=== PATIENT | female | born 1950 | race African-American/Black ===

== ENCOUNTER 2021-03-03 14:33 | Observation (INO) ==
[2021-03-03] MEDS ORDERED: SODIUM CHLORIDE 0.9% 1,000 ML IV STA (15:01)
[2021-03-03 15:44] LABS: Basophils % 0.2 % (0.0-0.8); Eosinophils # 0.1 10*3/uL (0.0-0.87); Eosinophils % 1.2 % (0.00-10.9); Hematocrit 39.3 VOL% (35.7-47.0); Hemoglobin 12.5 GM/DL (12.0-16.0); Immature Granulocytes % 0.8 %; Immature Granulocytes Absolute 0.07 #; Lymphocytes # 2.3 10*3/uL (1.4-4.0); Mean Corpuscular HGB Conc 31.8 GM/DL (32-36); Mean Corpuscular Volume 97.5 FL (87-102); Mean Platelet Volume 10.3 FL (9.6-12.0); Monocytes % 5.5 % (1.7-12.7); Neutrophils % 65.3 % (38.7-73.9); Platelet Count 379 T/CUMM (130-400); Red Blood Count 4.03 MC/CUMM (3.8-5.5); Red Cell Distribution Width 13.5 % (9.3-17.3); White Blood Count 8.7 T/CUMM (4-12)
[2021-03-03 16:10] LABS: Alanine Aminotransferase < 9 U/L (13-56); Albumin 3.2 G/DL (3.4-5.0); Alkaline Phosphatase 117 U/L (45-117); Amylase 49 U/L (25-115); Aspartate Amino Transferase 12 U/L (0-37); Blood Urea Nitrogen 20 MG/DL (7-18); Calcium 9.3 MG/DL (8.5-10.1); Carbon Dioxide 26 MMOL/L (21-32); Estimated Glom Filtration Rate 44 ML/MIN; Glucose 190 MG/DL (74-106); Osmolality,Calculated 280.8 MOS/KG (273-304); Potassium 3.1 MMOL/L (3.5-5.1); Sodium 137 MMOL/L (136-145); Thyroid Stimulating Hormone 0.551 uIU/ml (0.358-3.74); Total Protein 7.4 G/DL (6.4-8.2)
[2021-03-03 17:08] LABS: Bacteria,Urine Occasional /HPF (Few); Bilirubin,Urine Negative (Negative); Blood, Urine Negative (Negative); Glucose,Urine (UA) >=500 mg/dL (Negative); Hyaline Casts,Urine 5 /LPF (0-3); Ketones,Urine Negative (Negative); Mucus,Urine Occasional /LPF (Occasional); Nitrite,Urine Negative (Negative); Protein,Urine Negative; RBC,Urine 3 /HPF (0-4); Squamous Epithelial Cell,Urine Occasional /HPF (0-10); Urine Appearance CLEAR (Clear); Urine Color Yellow (Yellow); Urine Specific Gravity 1.014 (1.001-1.035); Urine Urobilinogen < 2.0 EU/DL (<2.0)
[2021-03-03] MEDS ORDERED: DEXTROSE 50% 25 GM/50 ML VIAL IV PRN (17:51)
[2021-03-03] MEDS ORDERED: ONDANSETRON 4 MG/2 ML VIAL IV PRN (17:51)
[2021-03-03] MEDS ORDERED: GLUCAGON 1 MG VIAL IM PRN ×2 (17:51)
[2021-03-03] MEDS ORDERED: POTASSIUM CHLORIDE 20 MEQ TABLET PO STA (17:56)
[2021-03-03] MEDS ORDERED: DEXTROSE 50% 25 GM/50 ML SYRINGE IV PRN (18:07)
[2021-03-03] MEDS: ENOXAPARIN 40 MG/0.4 ML SYRINGE SUBCUT SCH (19:08)
[2021-03-03] MEDS: INSULIN LISPRO 100 UNIT/ML SUBCUT SCH (21:10)
[2021-03-03] MEDS: LACTATED RINGERS 1,000 ML IV SCH (21:18)
[2021-03-03] MEDS: BRIMONIDINE 0.2% OPH SOLN 5 ML BOTTLE BOTH EYES SCH (22:36)
[2021-03-03] MEDS: ATROPINE 1 % OPH SOLN 5 ML BOTTLE RIGHT EYE SCH (22:36)
[2021-03-03] MEDS: prednisoLONE ACETATE 1% OPH SUSP 5 ML BOTTLE RIGHT EYE SCH (22:36)
[2021-03-04 04:29] LABS: Basophils % 0.2 % (0.0-0.8); Eosinophils # 0.2 10*3/uL (0.0-0.87); Eosinophils % 1.9 % (0.00-10.9); Hematocrit 37.2 VOL% (35.7-47.0); Hemoglobin 11.9 GM/DL (12.0-16.0); Immature Granulocytes % 0.5 %; Immature Granulocytes Absolute 0.05 #; Lymphocytes # 2.3 10*3/uL (1.4-4.0); Lymphocytes % 23.6 % (21.3-54.2); Mean Corpuscular Volume 95.9 FL (87-102); Mean Platelet Volume 10.2 FL (9.6-12.0); Monocytes % 5.6 % (1.7-12.7); Neutrophils % 68.2 % (38.7-73.9); Platelet Count 363 T/CUMM (130-400); Red Blood Count 3.88 MC/CUMM (3.8-5.5); Red Cell Distribution Width 13.5 % (9.3-17.3); White Blood Count 9.9 T/CUMM (4-12)
[2021-03-04 04:56] LABS: Osmolality,Calculated 283.4 MOS/KG (273-304); Potassium 3.5 MMOL/L (3.5-5.1); Risk Ratio 4.59; VLDL Cholesterol 26.8 MG/DL
[2021-03-04] MEDS: LACTATED RINGERS 1,000 ML IV SCH ×3 (05:31→19:13)
[2021-03-04 05:42] LABS: Sedimentation Rate-Westergren 43 MM/HR (0-30)
[2021-03-04] MEDS: INSULIN LISPRO 100 UNIT/ML SUBCUT SCH ×4 (07:45→21:22)
[2021-03-04] MEDS ORDERED: INFLUENZA VIRUS VACCINE 0.5 ML SYRINGE IM ONE (09:00)
[2021-03-04] MEDS: PANTOPRAZOLE 40 MG TABLET PO SCH (10:34)
[2021-03-04] MEDS: ASPIRIN EC 81 MG TABLET PO SCH (10:34)
[2021-03-04] MEDS: ASCORBIC ACID 500 MG TABLET PO SCH (10:34)
[2021-03-04] MEDS: CHOLECALCIFEROL 1,000 UNIT TABLET PO SCH (10:34)
[2021-03-04] MEDS: MULTIVITAMIN (CENTRUM) TABLET PO SCH (10:35)
[2021-03-04] MEDS: BRIMONIDINE 0.2% OPH SOLN 5 ML BOTTLE BOTH EYES SCH ×2 (10:35→21:20)
[2021-03-04] MEDS: ATROPINE 1 % OPH SOLN 5 ML BOTTLE RIGHT EYE SCH ×2 (10:35→21:22)
[2021-03-04] MEDS: prednisoLONE ACETATE 1% OPH SUSP 5 ML BOTTLE RIGHT EYE SCH ×4 (10:35→21:20)
[2021-03-04] MEDS: ENOXAPARIN 40 MG/0.4 ML SYRINGE SUBCUT SCH ×2 (19:17→20:35)
[2021-03-05] MEDS: LACTATED RINGERS 1,000 ML IV SCH ×3 (01:11→18:33)
[2021-03-05] MEDS ORDERED: ACETAMINOPHEN 325 MG TABLET PO PRN (05:38)
[2021-03-05 05:50] LABS: Basophils % 0.4 % (0.0-0.8); Eosinophils # 0.3 10*3/uL (0.0-0.87); Eosinophils % 3.6 % (0.00-10.9); Hematocrit 36.5 VOL% (35.7-47.0); Hemoglobin 11.8 GM/DL (12.0-16.0); Immature Granulocytes % 0.5 %; Immature Granulocytes Absolute 0.04 #; Lymphocytes # 2.9 10*3/uL (1.4-4.0); Mean Corpuscular HGB Conc 32.3 GM/DL (32-36); Mean Corpuscular Volume 96.3 FL (87-102); Mean Platelet Volume 10.8 FL (9.6-12.0); Monocytes % 6.3 % (1.7-12.7); Neutrophils % 54.2 % (38.7-73.9); Platelet Count 387 T/CUMM (130-400); Red Blood Count 3.79 MC/CUMM (3.8-5.5); Red Cell Distribution Width 13.7 % (9.3-17.3); White Blood Count 8.2 T/CUMM (4-12)
[2021-03-05 06:06] LABS: Calcium 9.4 MG/DL (8.5-10.1); Osmolality,Calculated 278.5 MOS/KG (273-304); Potassium 3.3 MMOL/L (3.5-5.1)
[2021-03-05] MEDS ORDERED: MAGNESIUM SULF RIDER 4 GM/100 ML PREMIX IV ONE (08:19)
[2021-03-05] MEDS: INSULIN LISPRO 100 UNIT/ML SUBCUT SCH ×4 (09:40→20:34)
[2021-03-05] MEDS: ASPIRIN EC 81 MG TABLET PO SCH (09:40)
[2021-03-05] MEDS: prednisoLONE ACETATE 1% OPH SUSP 5 ML BOTTLE RIGHT EYE SCH ×4 (09:40→21:29)
[2021-03-05] MEDS: BRIMONIDINE 0.2% OPH SOLN 5 ML BOTTLE BOTH EYES SCH ×2 (09:40→21:29)
[2021-03-05] MEDS: CARBIDOPA/LEVODOPA 25-250 MG TABLET PO SCH ×2 (09:40→13:37)
[2021-03-05] MEDS: PANTOPRAZOLE 40 MG TABLET PO SCH (09:40)
[2021-03-05] MEDS: MULTIVITAMIN (CENTRUM) TABLET PO SCH (09:40)
[2021-03-05] MEDS: ATROPINE 1 % OPH SOLN 5 ML BOTTLE RIGHT EYE SCH ×2 (09:40→21:29)
[2021-03-05] MEDS: CHOLECALCIFEROL 1,000 UNIT TABLET PO SCH (09:41)
[2021-03-05] MEDS: ASCORBIC ACID 500 MG TABLET PO SCH (09:42)
[2021-03-05] MEDS ORDERED: POTASSIUM CHLORIDE 20 MEQ TABLET PO ONE (12:36)
[2021-03-05] MEDS: POTASSIUM CHLORIDE RIDER 10 MEQ/100 ML PREMIX IV SCH (12:42)
[2021-03-05] MEDS: ENOXAPARIN 40 MG/0.4 ML SYRINGE SUBCUT SCH (21:29)
[2021-03-05] MEDS: CARBIDOPA/LEVODOPA 25-100 MG TABLET PO SCH (21:30)
[2021-03-06] MEDS: LACTATED RINGERS 1,000 ML IV SCH ×4 (00:12→20:01)
[2021-03-06 04:24] LABS: Basophils % 0.2 % (0.0-0.8); Eosinophils # 0.4 10*3/uL (0.0-0.87); Eosinophils % 4.3 % (0.00-10.9); Hematocrit 32.7 VOL% (35.7-47.0); Hemoglobin 10.4 GM/DL (12.0-16.0); Immature Granulocytes % 0.4 %; Immature Granulocytes Absolute 0.03 #; Mean Corpuscular HGB Conc 31.8 GM/DL (32-36); Mean Corpuscular Volume 96.7 FL (87-102); Mean Platelet Volume 11.1 FL (9.6-12.0); Monocytes % 6.1 % (1.7-12.7); Platelet Count 354 T/CUMM (130-400); Red Blood Count 3.38 MC/CUMM (3.8-5.5); Red Cell Distribution Width 13.7 % (9.3-17.3); White Blood Count 8.5 T/CUMM (4-12)
[2021-03-06 04:46] LABS: Calcium 8.7 MG/DL (8.5-10.1); Osmolality,Calculated 281.3 MOS/KG (273-304); Potassium 4.1 MMOL/L (3.5-5.1)
[2021-03-06] MEDS: INSULIN LISPRO 100 UNIT/ML SUBCUT SCH ×4 (09:13→20:45)
[2021-03-06] MEDS: ASPIRIN EC 81 MG TABLET PO SCH (09:13)
[2021-03-06] MEDS: MULTIVITAMIN (CENTRUM) TABLET PO SCH (09:13)
[2021-03-06] MEDS: PANTOPRAZOLE 40 MG TABLET PO SCH (09:13)
[2021-03-06] MEDS: ATROPINE 1 % OPH SOLN 5 ML BOTTLE RIGHT EYE SCH ×2 (09:14→20:45)
[2021-03-06] MEDS: prednisoLONE ACETATE 1% OPH SUSP 5 ML BOTTLE RIGHT EYE SCH ×4 (09:14→20:45)
[2021-03-06] MEDS: ASCORBIC ACID 500 MG TABLET PO SCH (09:14)
[2021-03-06] MEDS: CARBIDOPA/LEVODOPA 25-100 MG TABLET PO SCH (09:14)
[2021-03-06] MEDS: BRIMONIDINE 0.2% OPH SOLN 5 ML BOTTLE BOTH EYES SCH ×2 (09:14→20:45)
[2021-03-06] MEDS: CHOLECALCIFEROL 1,000 UNIT TABLET PO SCH (10:23)
[2021-03-06] MEDS: ENOXAPARIN 40 MG/0.4 ML SYRINGE SUBCUT SCH (20:45)
[2021-03-07] MEDS: LACTATED RINGERS 1,000 ML IV SCH ×2 (04:11→12:47)
[2021-03-07 05:52] LABS: Basophils % 0.4 % (0.0-0.8); Eosinophils # 0.4 10*3/uL (0.0-0.87); Eosinophils % 4.6 % (0.00-10.9); Hematocrit 34.4 VOL% (35.7-47.0); Hemoglobin 10.9 GM/DL (12.0-16.0); Immature Granulocytes % 0.2 %; Immature Granulocytes Absolute 0.02 #; Lymphocytes # 3.1 10*3/uL (1.4-4.0); Lymphocytes % 38.3 % (21.3-54.2); Mean Corpuscular HGB Conc 31.7 GM/DL (32-36); Mean Corpuscular Volume 97.5 FL (87-102); Mean Platelet Volume 11.2 FL (9.6-12.0); Monocytes % 6.7 % (1.7-12.7); Neutrophils % 49.8 % (38.7-73.9); Platelet Count 343 T/CUMM (130-400); Red Blood Count 3.53 MC/CUMM (3.8-5.5); Red Cell Distribution Width 14.3 % (9.3-17.3); White Blood Count 8.1 T/CUMM (4-12)
[2021-03-07 06:14] LABS: Calcium 8.9 MG/DL (8.5-10.1); Osmolality,Calculated 284.1 MOS/KG (273-304); Potassium 3.9 MMOL/L (3.5-5.1)
[2021-03-07] MEDS: BRIMONIDINE 0.2% OPH SOLN 5 ML BOTTLE BOTH EYES SCH (09:17)
[2021-03-07] MEDS: ATROPINE 1 % OPH SOLN 5 ML BOTTLE RIGHT EYE SCH (09:17)
[2021-03-07] MEDS: MULTIVITAMIN (CENTRUM) TABLET PO SCH (09:18)
[2021-03-07] MEDS: ASPIRIN EC 81 MG TABLET PO SCH (09:18)
[2021-03-07] MEDS: ASCORBIC ACID 500 MG TABLET PO SCH (09:18)
[2021-03-07] MEDS: PANTOPRAZOLE 40 MG TABLET PO SCH (09:18)
[2021-03-07] MEDS: prednisoLONE ACETATE 1% OPH SUSP 5 ML BOTTLE RIGHT EYE SCH (09:18)
[2021-03-07] MEDS: CHOLECALCIFEROL 1,000 UNIT TABLET PO SCH (09:18)
[2021-03-07] MEDS: INSULIN LISPRO 100 UNIT/ML SUBCUT SCH (10:23)
[2021-03-07 13:00] VITALS: BP 116/44
== END 2021-03-07 13:45 | disposition home or self-care (01) ==
LOC: N.ED 14:33 → N.2E 14:33 → SUATTDRO 17:51 → N.2E 20:22 → N.TELEN 03-04 17:20
PROVIDERS: ADMIT Internal Medicine; ATTEND Emergency Medicine

== ENCOUNTER 2021-05-18 12:47 | Inpatient (IN) ==
[2021-05-18 14:42] LABS: Basophils % 0.4 % (0.0-0.8); Eosinophils # 0.2 10*3/uL (0.0-0.87); Eosinophils % 1.9 % (0.00-10.9); Hematocrit 31.7 VOL% (35.7-47.0); Hemoglobin 10.2 GM/DL (12.0-16.0); Immature Granulocytes Absolute 0.08 #; Lymphocytes % 25.1 % (21.3-54.2); Mean Corpuscular HGB Conc 32.2 GM/DL (32-36); Mean Corpuscular Volume 101.3 FL (87-102); Mean Platelet Volume 10.1 FL (9.6-12.0); Monocytes % 3.1 % (1.7-12.7); Neutrophils % 68.5 % (38.7-73.9); Platelet Count 462 T/CUMM (130-400); Red Blood Count 3.13 MC/CUMM (3.8-5.5); Red Cell Distribution Width 14.7 % (9.3-17.3)
[2021-05-18 15:02] LABS: Bilirubin,Total 0.6 MG/DL (0.20-1.00); Calcium 9.4 MG/DL (8.5-10.1); Osmolality,Calculated 273.4 MOS/KG (273-304); Potassium 4.2 MMOL/L (3.5-5.1); Total Protein 6.9 G/DL (6.4-8.2)
[2021-05-18] MEDS ORDERED: FUROSEMIDE 100 MG/10 ML VIAL IV STA (15:12)
[2021-05-18] MEDS ORDERED: CLINDAMYCIN INJ 600 MG/50 ML PREMIX IV STA (15:12)
[2021-05-18] MEDS ORDERED: ONDANSETRON 4 MG/2 ML VIAL IV PRN (16:03)
[2021-05-18] MEDS ORDERED: GLUCAGON 1 MG VIAL IM PRN (16:03)
[2021-05-18] MEDS ORDERED: ACETAMINOPHEN 325 MG TABLET PO PRN (16:03)
[2021-05-18] MEDS ORDERED: DEXTROSE 10% 250 ML BAG IV PRN (16:11)
[2021-05-18] MEDS ORDERED: cefTRIAXone 1,000 MG in SODIUM CHLORIDE 0.9% 100 ML IV SCH (16:30)
[2021-05-18] MEDS ORDERED: cefTRIAXone 2,000 MG in SODIUM CHLORIDE 0.9% 100 ML IV SCH (18:00)
[2021-05-18] MEDS: INSULIN LISPRO 100 UNIT/ML SUBCUT SCH ×2 (18:36→21:40)
[2021-05-18] MEDS ORDERED: ENOXAPARIN 40 MG/0.4 ML SYRINGE SUBCUT SCH (21:00)
[2021-05-18] MEDS: prednisoLONE ACETATE 1% OPH SUSP 5 ML BOTTLE RIGHT EYE SCH (21:45)
[2021-05-18] MEDS: PANTOPRAZOLE 40 MG TABLET PO SCH (21:47)
[2021-05-18] MEDS: PRAMIPEXOLE 1 MG TABLET PO SCH (21:47)
[2021-05-18] MEDS: CARBIDOPA/LEVODOPA 25-100 MG TABLET PO SCH (21:47)
[2021-05-19 04:00] LABS: Basophils % 0.6 % (0.0-0.8); Eosinophils # 0.2 10*3/uL (0.0-0.87); Eosinophils % 3.6 % (0.00-10.9); Hematocrit 29.1 VOL% (35.7-47.0); Hemoglobin 9.2 GM/DL (12.0-16.0); Immature Granulocytes % 1.3 %; Immature Granulocytes Absolute 0.08 #; Lymphocytes # 1.7 10*3/uL (1.4-4.0); Mean Corpuscular HGB Conc 31.6 GM/DL (32-36); Mean Corpuscular Volume 103.2 FL (87-102); Mean Platelet Volume 10.2 FL (9.6-12.0); Monocytes % 4.7 % (1.7-12.7); Neutrophils % 62.8 % (38.7-73.9); Platelet Count 430 T/CUMM (130-400); Red Blood Count 2.82 MC/CUMM (3.8-5.5); Red Cell Distribution Width 14.7 % (9.3-17.3); White Blood Count 6.4 T/CUMM (4-12)
[2021-05-19 04:14] LABS: Calcium 8.5 MG/DL (8.5-10.1); Potassium 3.7 MMOL/L (3.5-5.1)
[2021-05-19] MEDS ORDERED: CHLORHEXIDINE 0.12% ORAL RINSE 60 ML BOTTLE SWISH/SPIT PRN (07:00)
[2021-05-19] MEDS ORDERED: CHLORHEXIDINE 0.12% ORAL RINSE 60 ML BOTTLE SWISH/SPIT SCH (07:00)
[2021-05-19] MEDS: INSULIN LISPRO 100 UNIT/ML SUBCUT SCH ×2 (07:59→11:59)
[2021-05-19] MEDS ORDERED: FUROSEMIDE 40 MG/4 ML VIAL IV SCH (08:00)
[2021-05-19] MEDS ORDERED: BRIMONIDINE 0.2% OPH SOLN 5 ML BOTTLE LEFT EYE SCH (09:00)
[2021-05-19] MEDS ORDERED: MULTIVITAMIN (CENTRUM) TABLET PO SCH (09:00)
[2021-05-19] MEDS ORDERED: ASPIRIN EC 81 MG TABLET PO SCH (09:00)
[2021-05-19] MEDS ORDERED: ATROPINE 1 % OPH SOLN 5 ML BOTTLE RIGHT EYE SCH (09:00)
[2021-05-19] MEDS ORDERED: CHOLECALCIFEROL 1,000 UNIT TABLET PO SCH (09:00)
[2021-05-19] MEDS ORDERED: ASCORBIC ACID 500 MG TABLET PO SCH (09:00)
[2021-05-19] MEDS: PRAMIPEXOLE 1 MG TABLET PO SCH ×2 (09:31→13:21)
[2021-05-19] MEDS: PANTOPRAZOLE 40 MG TABLET PO SCH (09:32)
[2021-05-19] MEDS: prednisoLONE ACETATE 1% OPH SUSP 5 ML BOTTLE RIGHT EYE SCH (09:32)
[2021-05-19] MEDS: CARBIDOPA/LEVODOPA 25-100 MG TABLET PO SCH (09:32)
[2021-05-19 14:09] VITALS: BP 100/57
== END 2021-05-19 14:10 | disposition home health service (06) | DRG 603 ==
LOC: N.ED 12:47 → SUATTDRO 16:03 → N.EDINP 16:03
PROVIDERS: ADMIT Internal Medicine; ATTEND Internal Medicine

== ENCOUNTER 2022-05-05 09:18 | Inpatient (IN) ==
[2022-05-05] MEDS ORDERED: ASPIRIN 325 MG TABLET PO STA (09:38)
[2022-05-05] MEDS ORDERED: ALUM/MAG/SIMETH/LIDO VISC 1:1 30 ML BOTTLE PO STA (09:45)
[2022-05-05] MEDS ORDERED: SODIUM CHLORIDE 0.9% 1,000 ML IV STA (09:46)
[2022-05-05] MEDS ORDERED: MORPHINE 10 MG/1 ML VIAL IV STA (09:47)
[2022-05-05] MEDS ORDERED: ONDANSETRON 4 MG/2 ML VIAL IV STA (09:47)
[2022-05-05] MEDS ORDERED: MORPHINE 2 MG/1 ML SYRINGE IV STA (09:48)
[2022-05-05 09:55] LABS: Basophils % 0.4 % (0.0-0.8); Eosinophils # 0.1 10*3/uL (0.0-0.87); Eosinophils % 1.4 % (0.00-10.9); Hematocrit 39.2 VOL% (35.7-47.0); Hemoglobin 12.8 GM/DL (12.0-16.0); Immature Granulocytes % 0.3 %; Immature Granulocytes Absolute 0.03 #; Lymphocytes # 2.9 10*3/uL (1.4-4.0); Lymphocytes % 31.6 % (21.3-54.2); Mean Corpuscular HGB Conc 32.7 GM/DL (32-36); Mean Corpuscular Volume 94.9 FL (87-102); Mean Platelet Volume 9.3 FL (9.6-12.0); Monocytes # 0.5 10*3/uL (0.11-0.8); Monocytes % 4.9 % (1.7-12.7); Neutrophils % 61.4 % (38.7-73.9); Platelet Count 358 T/CUMM (130-400); Red Blood Count 4.13 MC/CUMM (3.8-5.5); Red Cell Distribution Width 13.1 % (9.3-17.3); White Blood Count 9.26 T/CUMM (4-12)
[2022-05-05 10:13] LABS: Albumin 3.6 G/DL (3.4-5.0); Bilirubin,Total 0.5 MG/DL (0.20-1.00); Osmolality,Calculated 279.8 MOS/KG (273-304); Potassium 4.1 MMOL/L (3.5-5.1); Total Protein 8.2 G/DL (6.4-8.2)
[2022-05-05 10:17] LABS: PT Patient Result 10.9 SECS (10.1-12.1); Partial Thromboplastin Time 29.5 SECS (23.7-32.9)
[2022-05-05] MEDS ORDERED: ENOXAPARIN 80 MG/0.8 ML SYRINGE SUBCUT STA (11:06)
[2022-05-05] MEDS ORDERED: ENOXAPARIN 100 MG/ML SYRINGE SUBCUT ONE (11:09)
[2022-05-05] MEDS ORDERED: GLUCAGON 1 MG VIAL IM PRN (11:47)
[2022-05-05] MEDS ORDERED: ACETAMINOPHEN 325 MG TABLET PO PRN (11:47)
[2022-05-05] MEDS ORDERED: ONDANSETRON 4 MG/2 ML VIAL IV PRN (11:47)
[2022-05-05] MEDS ORDERED: DEXTROSE 10% 250 ML BAG IV PRN (11:47)
[2022-05-05] MEDS ORDERED: FUROSEMIDE 40 MG TABLET PO PRN (12:01)
[2022-05-05] MEDS: GABAPENTIN 100 MG CAPSULE PO SCH ×2 (16:49→20:49)
[2022-05-05] MEDS: CARBIDOPA/LEVODOPA 25-100 MG TABLET PO SCH ×2 (17:38→20:49)
[2022-05-05] MEDS: INSULIN LISPRO 100 UNIT/ML SUBCUT SCH ×2 (18:22→22:51)
[2022-05-05] MEDS: APIXABAN 5 MG TABLET PO SCH (20:48)
[2022-05-05] MEDS: prednisoLONE ACETATE 1% OPH SUSP 5 ML BOTTLE RIGHT EYE SCH (20:50)
[2022-05-05] MEDS: BRIMONIDINE 0.2% OPH SOLN 5 ML BOTTLE BOTH EYES SCH (20:50)
[2022-05-05] MEDS: ATROPINE 1 % OPH SOLN 5 ML BOTTLE RIGHT EYE SCH (20:50)
[2022-05-06 04:54] LABS: Basophils % 0.5 % (0.0-0.8); Eosinophils # 0.3 10*3/uL (0.0-0.87); Eosinophils % 4.2 % (0.00-10.9); Hematocrit 32.5 VOL% (35.7-47.0); Hemoglobin 10.5 GM/DL (12.0-16.0); Immature Granulocytes % 0.3 %; Immature Granulocytes Absolute 0.02 #; Lymphocytes # 2.4 10*3/uL (1.4-4.0); Lymphocytes % 37.1 % (21.3-54.2); Mean Corpuscular HGB Conc 32.3 GM/DL (32-36); Mean Corpuscular Volume 97.6 FL (87-102); Mean Platelet Volume 9.4 FL (9.6-12.0); Monocytes # 0.5 10*3/uL (0.11-0.8); Monocytes % 7.6 % (1.7-12.7); Neutrophils % 50.3 % (38.7-73.9); Platelet Count 302 T/CUMM (130-400); Red Blood Count 3.33 MC/CUMM (3.8-5.5); Red Cell Distribution Width 13.2 % (9.3-17.3); White Blood Count 6.44 T/CUMM (4-12)
[2022-05-06 05:08] LABS: Osmolality,Calculated 283.1 MOS/KG (273-304); Potassium 3.7 MMOL/L (3.5-5.1)
[2022-05-06] MEDS: INSULIN LISPRO 100 UNIT/ML SUBCUT SCH ×4 (08:12→20:59)
[2022-05-06] MEDS: CARBIDOPA/LEVODOPA 25-100 MG TABLET PO SCH ×3 (08:53→20:58)
[2022-05-06] MEDS: ASPIRIN EC 81 MG TABLET PO SCH (08:53)
[2022-05-06] MEDS: APIXABAN 5 MG TABLET PO SCH ×2 (08:53→20:59)
[2022-05-06] MEDS: GABAPENTIN 100 MG CAPSULE PO SCH ×3 (08:53→20:58)
[2022-05-06] MEDS: POTASSIUM CHLORIDE 20 MEQ TABLET PO SCH (08:54)
[2022-05-06] MEDS: MAGNESIUM CHLORIDE 64 MG TABLET PO SCH (08:54)
[2022-05-06] MEDS: MULTIVITAMIN (CENTRUM) TABLET PO SCH (08:54)
[2022-05-06] MEDS: CHOLECALCIFEROL 1,000 UNIT TABLET PO SCH (08:54)
[2022-05-06] MEDS: PANTOPRAZOLE 40 MG TABLET PO SCH (08:54)
[2022-05-06] MEDS: ASCORBIC ACID 500 MG TABLET PO SCH (08:54)
[2022-05-06] MEDS: BRIMONIDINE 0.2% OPH SOLN 5 ML BOTTLE BOTH EYES SCH ×2 (08:55→21:00)
[2022-05-06] MEDS: prednisoLONE ACETATE 1% OPH SUSP 5 ML BOTTLE RIGHT EYE SCH ×2 (08:55→20:59)
[2022-05-06] MEDS: ATROPINE 1 % OPH SOLN 5 ML BOTTLE RIGHT EYE SCH ×2 (08:55→21:00)
[2022-05-06 09:49] LABS: Bacteria,Urine Occasional /HPF (Few); RBC,Urine 7 /HPF (0-4); Squamous Epithelial Cell,Urine Few /HPF (0-10)
[2022-05-06 09:56] LABS: Urine Appearance Cloudy (Clear); Urine Color Dark Yellow (Yellow)
[2022-05-06 09:57] LABS: Bilirubin,Urine Negative (Negative); Blood, Urine Small mg/dL (Negative); Glucose,Urine (UA) Negative (Negative); Ketones,Urine Negative (Negative); Nitrite,Urine Positive (Negative); Protein,Urine 30 mg/dL (Negative); Urine Urobilinogen 0.2 eU/dL (<2.0); Urine pH 5.5 (4.5-8.0)
[2022-05-06 10:01] LABS: Barbiturates Screen,Urine Negative (Negative); Benzodiazepines Screen,Urine Negative (Negative); Cannabinoid Screen,Urine Negative (Negative); Opiate Screen,Urine Positive (Negative); Phencyclidine Screen,Urine Negative (Negative)
[2022-05-06] MEDS: amLODIPine 5 MG TABLET PO SCH (14:09)
[2022-05-06] MEDS ORDERED: TUBERCULIN SKIN TEST 0.1 ML SYRINGE INTRADERM ONE (15:50)
[2022-05-06] MEDS: cefTRIAXone 1,000 MG in SODIUM CHLORIDE 0.9% 100 ML IV SCH (16:01)
[2022-05-06 16:35] LABS: 25 Hydroxy Vitamin D Total 40.9 NG/ML (30-100); Folate 17.15 NG/ML (5.38-24.0)
[2022-05-06 16:46] LABS: % Iron Saturation 15.3 % (18-50)
[2022-05-07 05:54] LABS: Basophils % 0.2 % (0.0-0.8); Eosinophils # 0.3 10*3/uL (0.0-0.87); Eosinophils % 3.9 % (0.00-10.9); Hematocrit 34.5 VOL% (35.7-47.0); Hemoglobin 10.9 GM/DL (12.0-16.0); Immature Granulocytes % 0.4 %; Immature Granulocytes Absolute 0.03 #; Lymphocytes % 36.8 % (21.3-54.2); Mean Corpuscular HGB Conc 31.6 GM/DL (32-36); Mean Corpuscular Volume 99.1 FL (87-102); Mean Platelet Volume 9.7 FL (9.6-12.0); Monocytes # 0.4 10*3/uL (0.11-0.8); Neutrophils % 53.7 % (38.7-73.9); Platelet Count 316 T/CUMM (130-400); Red Blood Count 3.48 MC/CUMM (3.8-5.5); Red Cell Distribution Width 13.2 % (9.3-17.3); White Blood Count 8.18 T/CUMM (4-12)
[2022-05-07 06:08] LABS: Osmolality,Calculated 282.4 MOS/KG (273-304); Potassium 4.3 MMOL/L (3.5-5.1)
[2022-05-07] MEDS: INSULIN LISPRO 100 UNIT/ML SUBCUT SCH ×4 (07:57→21:29)
[2022-05-07] MEDS: MAGNESIUM CHLORIDE 64 MG TABLET PO SCH (08:56)
[2022-05-07] MEDS: MULTIVITAMIN (CENTRUM) TABLET PO SCH (08:56)
[2022-05-07] MEDS: amLODIPine 5 MG TABLET PO SCH (08:57)
[2022-05-07] MEDS: POTASSIUM CHLORIDE 20 MEQ TABLET PO SCH (08:57)
[2022-05-07] MEDS: ASPIRIN EC 81 MG TABLET PO SCH (08:57)
[2022-05-07] MEDS: APIXABAN 5 MG TABLET PO SCH ×2 (08:58→21:29)
[2022-05-07] MEDS: GABAPENTIN 100 MG CAPSULE PO SCH ×3 (08:58→21:29)
[2022-05-07] MEDS: ASCORBIC ACID 500 MG TABLET PO SCH (08:58)
[2022-05-07] MEDS: PANTOPRAZOLE 40 MG TABLET PO SCH (08:58)
[2022-05-07] MEDS: CARBIDOPA/LEVODOPA 25-100 MG TABLET PO SCH ×3 (08:59→21:29)
[2022-05-07] MEDS: CHOLECALCIFEROL 1,000 UNIT TABLET PO SCH (08:59)
[2022-05-07] MEDS: ATROPINE 1 % OPH SOLN 5 ML BOTTLE RIGHT EYE SCH ×2 (09:03→21:30)
[2022-05-07] MEDS: prednisoLONE ACETATE 1% OPH SUSP 5 ML BOTTLE RIGHT EYE SCH ×2 (09:03→21:30)
[2022-05-07] MEDS: BRIMONIDINE 0.2% OPH SOLN 5 ML BOTTLE BOTH EYES SCH ×2 (09:03→21:30)
[2022-05-07] MEDS ORDERED: TUBERCULIN SKIN TEST 0.1 ML SYRINGE INTRADERM ONE (14:00)
[2022-05-07] MEDS: cefTRIAXone 1,000 MG in SODIUM CHLORIDE 0.9% 100 ML IV SCH (15:15)
[2022-05-07] MEDS: FERROUS SULFATE 325 MG TABLET PO SCH (15:15)
[2022-05-08 05:05] LABS: Basophils % 0.1 % (0.0-0.8); Eosinophils # 0.3 10*3/uL (0.0-0.87); Eosinophils % 4.2 % (0.00-10.9); Hematocrit 34.1 VOL% (35.7-47.0); Hemoglobin 10.9 GM/DL (12.0-16.0); Immature Granulocytes % 0.3 %; Immature Granulocytes Absolute 0.02 #; Lymphocytes # 3.3 10*3/uL (1.4-4.0); Lymphocytes % 42.1 % (21.3-54.2); Mean Corpuscular Volume 97.4 FL (87-102); Mean Platelet Volume 9.5 FL (9.6-12.0); Monocytes # 0.4 10*3/uL (0.11-0.8); Monocytes % 5.3 % (1.7-12.7); Platelet Count 325 T/CUMM (130-400); Red Cell Distribution Width 13.2 % (9.3-17.3); White Blood Count 7.89 T/CUMM (4-12)
[2022-05-08 05:24] LABS: Calcium 8.9 MG/DL (8.5-10.1); Osmolality,Calculated 276.7 MOS/KG (273-304); Potassium 4.2 MMOL/L (3.5-5.1)
[2022-05-08] MEDS: ATROPINE 1 % OPH SOLN 5 ML BOTTLE RIGHT EYE SCH ×2 (07:55→20:52)
[2022-05-08] MEDS: BRIMONIDINE 0.2% OPH SOLN 5 ML BOTTLE BOTH EYES SCH ×2 (07:55→20:52)
[2022-05-08] MEDS: prednisoLONE ACETATE 1% OPH SUSP 5 ML BOTTLE RIGHT EYE SCH ×2 (07:55→20:52)
[2022-05-08] MEDS: INSULIN LISPRO 100 UNIT/ML SUBCUT SCH ×4 (08:25→20:51)
[2022-05-08] MEDS: MULTIVITAMIN (CENTRUM) TABLET PO SCH (09:24)
[2022-05-08] MEDS: ASPIRIN EC 81 MG TABLET PO SCH (09:24)
[2022-05-08] MEDS: APIXABAN 5 MG TABLET PO SCH ×2 (09:25→20:51)
[2022-05-08] MEDS: FERROUS SULFATE 325 MG TABLET PO SCH (09:25)
[2022-05-08] MEDS: POTASSIUM CHLORIDE 20 MEQ TABLET PO SCH (09:26)
[2022-05-08] MEDS: PANTOPRAZOLE 40 MG TABLET PO SCH (09:27)
[2022-05-08] MEDS: GABAPENTIN 100 MG CAPSULE PO SCH ×3 (09:27→20:51)
[2022-05-08] MEDS: amLODIPine 5 MG TABLET PO SCH (09:27)
[2022-05-08] MEDS: CARBIDOPA/LEVODOPA 25-100 MG TABLET PO SCH ×3 (09:28→20:51)
[2022-05-08] MEDS: ASCORBIC ACID 500 MG TABLET PO SCH (09:28)
[2022-05-08] MEDS: MAGNESIUM CHLORIDE 64 MG TABLET PO SCH (09:28)
[2022-05-08] MEDS: CHOLECALCIFEROL 1,000 UNIT TABLET PO SCH (09:29)
[2022-05-08] MEDS: cefTRIAXone 1,000 MG in SODIUM CHLORIDE 0.9% 100 ML IV SCH (17:19)
[2022-05-09] MEDS: amLODIPine 5 MG TABLET PO SCH (09:32)
[2022-05-09] MEDS: PANTOPRAZOLE 40 MG TABLET PO SCH (09:32)
[2022-05-09] MEDS: MAGNESIUM CHLORIDE 64 MG TABLET PO SCH (09:32)
[2022-05-09] MEDS: GABAPENTIN 100 MG CAPSULE PO SCH ×3 (09:32→21:45)
[2022-05-09] MEDS: MULTIVITAMIN (CENTRUM) TABLET PO SCH (09:33)
[2022-05-09] MEDS: APIXABAN 5 MG TABLET PO SCH ×2 (09:33→21:45)
[2022-05-09] MEDS: POTASSIUM CHLORIDE 20 MEQ TABLET PO SCH (09:33)
[2022-05-09] MEDS: CARBIDOPA/LEVODOPA 25-100 MG TABLET PO SCH ×3 (09:33→21:45)
[2022-05-09] MEDS: ASCORBIC ACID 500 MG TABLET PO SCH (09:33)
[2022-05-09] MEDS: ASPIRIN EC 81 MG TABLET PO SCH (09:33)
[2022-05-09] MEDS: ATROPINE 1 % OPH SOLN 5 ML BOTTLE RIGHT EYE SCH ×2 (09:34→21:48)
[2022-05-09] MEDS: CHOLECALCIFEROL 1,000 UNIT TABLET PO SCH (09:34)
[2022-05-09] MEDS: BRIMONIDINE 0.2% OPH SOLN 5 ML BOTTLE BOTH EYES SCH ×2 (09:34→21:49)
[2022-05-09] MEDS: INSULIN LISPRO 100 UNIT/ML SUBCUT SCH ×4 (09:35→21:46)
[2022-05-09] MEDS: FERROUS SULFATE 325 MG TABLET PO SCH (09:40)
[2022-05-09] MEDS: prednisoLONE ACETATE 1% OPH SUSP 5 ML BOTTLE RIGHT EYE SCH ×2 (09:42→21:48)
[2022-05-09] MEDS: cefTRIAXone 1,000 MG in SODIUM CHLORIDE 0.9% 100 ML IV SCH (16:11)
[2022-05-10 04:41] LABS: Basophils % 0.2 % (0.0-0.8); Eosinophils # 0.3 10*3/uL (0.0-0.87); Eosinophils % 3.8 % (0.00-10.9); Hemoglobin 11.3 GM/DL (12.0-16.0); Immature Granulocytes % 0.4 %; Immature Granulocytes Absolute 0.03 #; Lymphocytes # 3.5 10*3/uL (1.4-4.0); Lymphocytes % 42.9 % (21.3-54.2); Mean Corpuscular HGB Conc 31.4 GM/DL (32-36); Mean Corpuscular Volume 96.8 FL (87-102); Mean Platelet Volume 10.1 FL (9.6-12.0); Monocytes # 0.4 10*3/uL (0.11-0.8); Monocytes % 5.3 % (1.7-12.7); Neutrophils % 47.4 % (38.7-73.9); Platelet Count 359 T/CUMM (130-400); Red Blood Count 3.72 MC/CUMM (3.8-5.5); Red Cell Distribution Width 13.1 % (9.3-17.3); White Blood Count 8.07 T/CUMM (4-12)
[2022-05-10 05:08] LABS: Calcium 9.2 MG/DL (8.5-10.1); Osmolality,Calculated 277.5 MOS/KG (273-304); Potassium 4.3 MMOL/L (3.5-5.1)
[2022-05-10] MEDS: INSULIN LISPRO 100 UNIT/ML SUBCUT SCH ×3 (08:19→16:40)
[2022-05-10] MEDS: ASCORBIC ACID 500 MG TABLET PO SCH (09:14)
[2022-05-10] MEDS: ASPIRIN EC 81 MG TABLET PO SCH (09:14)
[2022-05-10] MEDS: CHOLECALCIFEROL 1,000 UNIT TABLET PO SCH (09:14)
[2022-05-10] MEDS: MAGNESIUM CHLORIDE 64 MG TABLET PO SCH (09:14)
[2022-05-10] MEDS: MULTIVITAMIN (CENTRUM) TABLET PO SCH (09:14)
[2022-05-10] MEDS: FERROUS SULFATE 325 MG TABLET PO SCH (09:15)
[2022-05-10] MEDS: POTASSIUM CHLORIDE 20 MEQ TABLET PO SCH (09:15)
[2022-05-10] MEDS: PANTOPRAZOLE 40 MG TABLET PO SCH (09:15)
[2022-05-10] MEDS: amLODIPine 5 MG TABLET PO SCH (09:15)
[2022-05-10] MEDS: GABAPENTIN 100 MG CAPSULE PO SCH ×2 (09:15→15:56)
[2022-05-10] MEDS: CARBIDOPA/LEVODOPA 25-100 MG TABLET PO SCH ×2 (09:15→15:56)
[2022-05-10] MEDS: APIXABAN 5 MG TABLET PO SCH (09:15)
[2022-05-10] MEDS: prednisoLONE ACETATE 1% OPH SUSP 5 ML BOTTLE RIGHT EYE SCH (09:16)
[2022-05-10] MEDS: ATROPINE 1 % OPH SOLN 5 ML BOTTLE RIGHT EYE SCH (09:16)
[2022-05-10] MEDS: BRIMONIDINE 0.2% OPH SOLN 5 ML BOTTLE BOTH EYES SCH (09:16)
[2022-05-10 12:39] VITALS: BP 111/60
[2022-05-10] MEDS: cefTRIAXone 1,000 MG in SODIUM CHLORIDE 0.9% 100 ML IV SCH (16:04)
[2022-05-12] MEDS ORDERED: APIXABAN 5 MG TABLET PO SCH (21:00)
== END 2022-05-10 16:36 | DRG 176 ==
LOC: N.ED 09:18 → N.CC 11:22 → SUATTDRO 11:22 → N.EDINP 13:03 → N.TELEN 18:00
PROVIDERS: ADMIT Family Medicine; ATTEND Family Medicine